=== PATIENT | male | born 1985 | race Caucasian/White ===

== ENCOUNTER 2018-12-09 17:18 | Emergency (ER) | payer MEDICAID ==
[~2018-12-09] VITALS: Ht 170.2 cm; Wt 85.7 kg
[2018-12-09 17:40] VITALS: Ht 170.2 cm; Wt 85.7 kg
[2018-12-09 19:05] VITALS: BP 131/72
== END 2018-12-09 19:05 | disposition home or self-care (01) ==
LOC: ED 17:18
DX: S62.607A Fracture of unspecified phalanx of left little finger, initial encounter for closed fracture (principal); R03.0 Elevated blood-pressure reading, without diagnosis of hypertension; W01.0XXA Fall on same level from slipping, tripping and stumbling without subsequent striking against object, initial encounter; Y93.89 Activity, other specified; Y92.89 Other specified places as the place of occurrence of the external cause; Y99.8 Other external cause status
CPT/HCPCS: A4570; J1885